=== PATIENT | male | born 1985 ===

== ENCOUNTER 2020-02-26 13:43 | Emergency (ER) | payer BC ==
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
--- NOTE | 2020-02-26 14:44 | CR ---
Right 3rd finger: 4 views centered to the right 3rd finger were obtained. Small mae of bone is noted off the volar DIP joint. Difficult to exclude minimal avulsion fracture. Soft tissue swelling is seen. No additional fracture or other bony abnormality is appreciated. Impression: 1. Possible very minimal avulsion fracture off the volar DIP joint of the 3rd finger. 2. Soft tissue swelling. Diagnostic code #3 This report was dictated in MDT
--- NOTE | 2020-02-26 14:45 | CR ---
Left shoulder: 3 views left shoulder were obtained. Comparison: No previous shoulder study. Dislocated acromioclavicular joint is seen. Glenohumeral joint is normal. No fracture or other bony abnormality is seen. Impression: 1. Dislocated acromioclavicular joint. Diagnostic code #3 This report was dictated in MDT
== END 2020-02-26 15:28 | disposition home or self-care (01) ==
LOC: JD.ED 13:43
DX: S43.102A Unspecified dislocation of left acromioclavicular joint, initial encounter (principal); S63.292A Dislocation of distal interphalangeal joint of right middle finger, initial encounter; Z88.0 Allergy status to penicillin; V18.4XXA Pedal cycle driver injured in noncollision transport accident in traffic accident, initial encounter
CPT/HCPCS: 73030-26-LT; 73030-LT; 73140-26-F7; 73140-F7; 99283